=== PATIENT | female | born 1995 | race Caucasian/White ===

== ENCOUNTER 2017-01-29 18:59 | Emergency (ER) | payer OTHER ==
[~2017-01-29] VITALS: Ht 160 cm; Wt 83.9 kg
--- NOTE | 2017-01-29 18:59 | NUR ---
Patient was BIBA and taken to bed 07 via gurney.
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
[2017-01-29 19:02] VITALS: BP 147/117
[2017-01-29] MEDS ORDERED: HYDROCODON-ACETAMINOPHEN 5-325 (19:05)
[2017-01-29] MEDS ORDERED: IBUPROFEN 600 MG TABLET (19:05)
[2017-01-29] MEDS ORDERED: LORazepam 2 MG/ML VIAL IM ONE (19:45)
[2017-01-29 20:45] VITALS: BP 131/70
--- NOTE | 2017-01-29 20:45 | NUR ---
Patient discharged with v/s stable. Written and verbal after care instructions given and explained. Patient alert, oriented and verbalized understanding of instructions. Ambulatory with steady gait. All questions addressed prior to discharge. ID band removed. Patient advised to follow up with PMD. Rx of VALIUM 500MG AND NAPROSYN 500MG given. Patient educated on indication of medication including possible reaction and side effects. Opportunity to ask questions provided and answered.
== END 2017-01-29 20:45 | disposition home or self-care (01) ==
LOC: MED 18:59
DX: R07.89 Other chest pain (principal); F41.9 Anxiety disorder, unspecified
CPT/HCPCS: 71010; 81025; 96372; 99283; J2060; Q0092